=== PATIENT | female | born 1990 | race Caucasian/White ===

== ENCOUNTER 2018-11-18 08:31 | Emergency (ER) | payer BC, OTHER ==
--- NOTE | 2018-11-18 08:45 | ED ---
HPI Chest Pain - HPI Summary HPI Summary: Pt is a 28 y/o female who presents to the ED c/o CP. She began having left- sided CP yesterday at 7:30. The pain has been constant, feels tight and cramping in nature, and is rated an 8/10 in severity. Pt has heart murmurs, which sometimes tighten up and cause CP for 10-15 minutes at a time. She is concerned because the pain is not resolving this time. Pt also reports paresthesia down her left shoulder and arm, and intermittent nausea. She denies any SOB, cough, rhinorrhea, congestion, fever, chills, abdominal pain, or palpitations. Her pulse has been regular at 80-90 bpm. Pt denies any hx of blood clots, or any FHx of cardiac disease. She uses e-cigarettes, but denies any alcohol or drug use. - History of Current Complaint Chief Complaint: EDChestPainROMI Time Seen by Provider: 11/18/18 08:41 Hx Obtained From: Patient Onset/Duration: Started Days Ago - 7:30 yesterday, Still Present Timing: Constant Current Severity: Severe Pain Intensity: 8 Pain Scale Used: 0-10 Numeric Chest Pain Location: Left Anterior Chest Pain Radiates: Yes Chest Pain Radiates To:: Shoulder - left, Arm - left Character: Tightness, Other: - cramping Aggravating Factor(s): Nothing Alleviating Factor(s): Nothing Associated Signs and Symptoms: Positive: Chest Pain, Tingling, Nausea. Negative : Shortness of Breath, Fever, Chills, Palpitations, Cough, Abdominal Pain, Nasal Congestion - Allergy/Home Medications Allergies/Adverse Reactions: Allergies Allergy/AdvReac Type Severity Reaction Status Date / Time CINNNAMON Allergy MOUTH-FEVERBLISTERS,CANKER Uncoded 11/18/18 08:36 SORES,THROAT TIGHTENS HAY-ENVIRONMENTAL Allergy RASH WITH Uncoded 11/18/18 08:36 CONTACT Home Medications: Home Medications Citalopram TAB* [CeleXA TAB*] 30 mg PO DAILY 11/18/18 [History Confirmed ] PMH/Surg Hx/FS Hx/Imm Hx Endocrine/Hematology History: Reports: Hx Anemia - HISTORY OF Cardiovascular History: Reports: Other Cardiovascular Problems/Disorders - MITROVALVE REG Respiratory History: Reports: Hx Asthma - ALBUTERAL NEEDED GI History: Reports: Other GI Disorders - HYPOGLYCEMIA History: Reports: Hx Kidney Infection - PRONE TO - 2 IN THE LAST 7 MONTHS, Hx Kidney Stones - LAST ONE 4 YEARS AGO, Other Problems/Disorders - PRONE TO BLADDER INFECTIONS Musculoskeletal History: Reports: Other Musculoskeletal History - LOWER BACK PINCHED NERVE FLARE UPS OCCASIONALLY Sensory History: Denies: Hx Contacts or Glasses, Hx Hearing Aid Opthamlomology History: Denies: Hx Contacts or Glasses Neurological History: Reports: Hx Migraine - 1 EVERY TWO WEEKS - Surgical History Surgery Procedure, Year, and Place: 2009 2011, C SECTION - [facility]. A YOUNG CHILD HAS CAVITY FILLING UNDER ANESTHESIA,. WISDOM TEETH EXTRACTION WITH NOVACAINE AND VALIUM Hx Anesthesia Reactions: Yes - NAUSEA Infectious Disease History: No Infectious Disease History: Denies: Traveled Outside the [place] in Last 30 Days - Family History Known Family History: Negative: Cardiac Disease - Social History Alcohol Use: Rare Hx Substance Use: No Substance Use Type: Reports: None Hx Tobacco Use: No Smoking Status (MU): Never Smoked Tobacco Type: eCigarettes Review of Systems Negative: Fever, Chills Negative: Nasal Discharge, Other - congestion Positive: Chest Pain. Negative: Palpitations Negative: Shortness Of Breath, Cough Positive: Nausea. Negative: Abdominal Pain, Vomiting Positive: Paresthesia - left shoulder and arm All Other Systems Reviewed And Are Negative: Yes Physical Exam - Summary Physical Exam Summary: GENERAL: Patient is a well-developed and nourished F who is lying comfortable in the stretcher. Patient is not in any acute respiratory distress. HEAD AND FACE: Normocephalic EYES: PERRLA, EOMI x 2. EARS: Hearing grossly intact. MOUTH: Oropharynx within normal limits. NECK: Supple, trachea is midline, no adenopathy, no JVD, no carotid bruit. CHEST: Symmetric, no tenderness at palpation LUNGS: Clear to auscultation bilaterally. No wheezing or crackles. CVS: Regular rate and rhythm, S1 and S2 present, no murmurs or gallops appreciated. ABDOMEN: Soft, non-tender. Bowel sounds are normal. No abdominal abnormal pulsations. EXTREMITIES: Full ROM in all major joints, no edema, no cyanosis or clubbing. NEURO: Alert and oriented x 3. No acute neurological deficits. Speech is normal and follows commands. SKIN: Dry and warm Triage Information Reviewed: Yes Vital Signs On Initial Exam: Initial Vitals Temp Pulse Resp BP Pulse Ox 98.1 F 83 20 141/58 100 11/18/18 08:33 11/18/18 08:33 11/18/18 08:33 11/18/18 08:33 11/18/18 08:33 Vital Signs Reviewed: Yes Diagnostics - Vital Signs Vital Signs Temp Pulse Resp BP Pulse Ox 11/18/18 08:33 98.1 F 83 20 141/58 100 - Laboratory Result Diagrams: 11/18/18 09:06 11/18/18 09:06 Lab Statement: Any lab studies that have been ordered have been reviewed, and results considered in the medical decision making process. - Radiology CXR Radiology Interpretation Completed By: Radiologist Summary of Radiographic Findings: NO ACTIVE CARDIOPULMONARY DISEASE IS NOTED. ED physician reviewed radiology report. - Ultrasound No standard instances Ultrasound Interpretation Completed By: Radiologist Summary of Ultrasound Findings: Transthoracic echocardiogram: Global left ventricular wall motion and contractility are within normal. limits. There is normal left ventricular systolic function. The estimated ejection fraction is 55-60%. The right ventricular global systolic function is normal. There is no evidence of aortic stenosis. There is a trace of mitral regurgitation. There is no evidence of mitral stenosis. There is trace tricuspid regurgitation. No pulmonary hypertension is noted. There is no significant pericardial effusion. ED physician reviewed radiology report. - EKG 8:45 Cardiac Rate: NL - 79 bpm EKG Rhythm: Sinus Rhythm Summary of EKG Findings: Nl intervals Re-Evaluation - Re-Evaluation First Eval Re-Evaluation Time: 10:25 Change: Unchanged Comment: Pt's pain is unchanged. Second Eval Re-Evaluation Time: 13:00 Change: Unchanged Comment: Pt now notes that she feels anxious. Chest Pain Course/Dx - Course Course Of Treatment: Pt is a 28 y/o female who presents to the ED c/o left- sided CP since yesterday at 7:30. An echocardiogram was normal. A CXR was normal. An EKG revealed a rate of 79 bpm. Workup was unremarkable. Pt will be discharged with a final dx of chest pain. I discussed results with patient and she reports feeling better. She is hemodynamically stable and safe for discharge. Strict return precautions given and she will otherwise follow up with her PCP and cardiology. - Diagnoses Provider Diagnoses: Chest pain Discharge - Sign-Out/Discharge Documenting (check all that apply): Patient Departure - Discharge Patient Received Moderate/Deep Sedation with Procedure: No - Discharge Plan Condition: Stable Disposition: HOME Patient Education Materials: Chest Pain (ED) Referrals: Edison Kang MD [Medical Doctor] - (1-3 days) Amara Davis NP [Nurse Practitioner] - Additional Instructions: Follow up with your primary care physician in 1-3 days. RETURN TO THE EMERGENCY DEPARTMENT FOR CHANGING OR WORSENING SYMPTOMS. - Billing Disposition and Condition Condition: STABLE Disposition: Home - Attestation Statements Document Initiated by Scribe: Yes Documenting Scribe: Lilian Davies Provider For Whom Scribe is Documenting (Include Credential): Fadia Lopez MD Scribe Attestation: Lilian Longoria scribed for Fadia Lopez MD on 11/19/18 at 1807. Scribe Documentation Reviewed: Yes Provider Attestation: The documentation as recorded by the Lilian bundy accurately reflects the service I personally performed and the decisions made by Fadia bingham MD Status of Scribe Document: Viewed
[2018-11-18 09:17] LABS: ABS Basophils 0 10^3/ul (0-0.2); ABS Eosinophils 0.1 10^3/ul (0-0.6); ABS Lymphocytes 2.1 10^3/ul (1.0-4.8); ABS Monocytes 0.5 10^3/ul (0-0.8); ABS Neutrophils 2.1 10^3/ul (1.5-7.7); ABS Nucleated RBC 0 10^3/ul; Eosinophil % 1.7 %; Hematocrit 36 % (35-47); Hemoglobin 12.7 g/dl (12.0-16.0); Lymphocyte % 43.1 %; Mean Corpuscular HGB Conc 35 g/dl (31-36); Mean Corpuscular Hemoglobin 30 pg (27-31); Mean Corpuscular Volume 86 fL (80-97); Mean Platelet Volume 9.2 fL (7.4-10.4); Nucleated Red Blood Cells % 0.1; Platelet Count 257 10^3/ul (150-450); Red Blood Count 4.24 10^6/ul (4.00-5.40); Red Cell Distribution Width 13 % (10.5-15); White Blood Count 4.8 10^3/ul (3.5-10.8)
[2018-11-18 09:26] LABS: Activated Partial Thrombo Time 31.5 seconds (26.0-36.3); INR 0.95 (0.77-1.02)
[2018-11-18] MEDS ORDERED: Ketorolac INJ* 60 MG/2 ML VIAL IM ONE (09:34)
[2018-11-18 09:38] LABS: ALT 16 U/L (7-52); AST 18 U/L (13-39); Albumin 4.4 g/dL (3.2-5.2); Albumin/Globulin Ratio 1.6 (1-3); Alkaline Phosphatase 48 U/L (34-104); Anion Gap 7 mmol/L (2-11); BUN/Creatinine Ratio 17.5 (8-20); Blood Urea Nitrogen 14 mg/dL (6-24); CO2 Carbon Dioxide 23 mmol/L (22-32); Calcium 9.5 mg/dL (8.6-10.3); Chloride 107 mmol/L (101-111); EGFR African American 102.6 (>60); EGFR Non-African American 84.8 (>60); Globulin 2.8 g/dL (2-4); Glucose 76 mg/dL (70-100); Potassium 3.8 mmol/L (3.5-5.0); Sodium 137 mmol/L (135-145); Total Protein 7.2 g/dL (6.4-8.9)
[2018-11-18 09:43] LABS: HCG Pregnancy < 0.60 mIU/mL
--- NOTE | 2018-11-18 12:41 | ECHO ---
Patient: SULY PALACIOS [facility] Rec#: [id number] : 1990 Date: 11/18/2018 Age: 28y Height: 178 cm / 70.1 in Weight: 85.3 kg / 188.0 lbs Sex: F BSA: 2.04 Room#: ED 5 Admit Date#: 11/18/2018 Type: Inpatient Referring: Fadia Lopez Reading: Edison Kang MD [employer] Operator: Anisa Ocasio RDCS Transthoracic Echocardiogram Indication: Chest pain BP: 141/58 HR: 64 Rhythm: NSR Findings History: Asthma, mitral valve regurgitation. Technical Comments: The study quality is fair. Completed at 1200. Left Ventricle: The left ventricular chamber size is normal. There is no left ventricular hypertrophy. Global left ventricular wall motion and contractility are within normal limits. There is normal left ventricular systolic function. The estimated ejection fraction is 55-60%. Normal left ventricular diastolic filling is observed. Left Atrium: The left atrial chamber size is normal. Right Ventricle: Moderator Band present. The right ventricle is mildly dilated. The right ventricular global systolic function is normal. Right Atrium: The right atrial cavity size is normal. Aortic Valve: The aortic valve is trileaflet. There is no evidence of aortic valve thickening. There is no evidence of aortic regurgitation. There is no evidence of aortic stenosis. Mitral Valve: The mitral valve leaflets are mildly thickened. There is a trace of mitral regurgitation. There is no evidence of mitral stenosis. Tricuspid Valve: The tricuspid valve leaflets are normal. There is trace tricuspid regurgitation. The right ventricular systolic pressure is estimated at 26 mmHg. No pulmonary hypertension is noted. There is no tricuspid stenosis. Pulmonic Valve: The pulmonic valve appears normal. There is a trace pulmonic regurgitation. There is no pulmonic stenosis. Pericardium: There is no significant pericardial effusion. Aorta: There is no dilatation of the ascending aorta. There is no dilatation of the aortic arch. The aortic root is normal in size. Pulmonary Artery: The main pulmonary artery appears normal. Venous: The inferior vena cava appears normal in size. There is a greater than 50% respiratory change in the inferior vena cava dimension. Conclusions Global left ventricular wall motion and contractility are within normal limits. There is normal left ventricular systolic function. The estimated ejection fraction is 55-60%. The right ventricular global systolic function is normal. There is no evidence of aortic stenosis. There is a trace of mitral regurgitation. There is no evidence of mitral stenosis. There is trace tricuspid regurgitation. No pulmonary hypertension is noted. There is no significant pericardial effusion. Measurements Name Value Normal Range RVIDd (AP) 2D 2.7 cm (0.9 - 2.6) RVDdMajor (2D) 4.6 cm (2.2 - 4.4) RAd ISD 4CH 4.6 cm (3.4 - 4.9) RA (A4C)W 4.4 cm (2.9 - 4.6) IVSd (2D) 0.9 cm (0.6 - 1) LVPWd (2D) 1 cm (0.6 - 1) LVIDd (2D) 4.7 cm (3.6 - 5.4) LVIDs (2D) 3.1 cm - LV FS (2D) 35 % (25 - 45) Aortic Annulus 2.2 cm (1.4 - 2.6) Ao root diameter (2D) 2.8 cm (2.1 - 3.5) Ascending Ao 2.5 cm (2.1 - 3.4) Aortic arch 2 cm (1.8 - 3.4) LA dimension (AP) 2D 3.5 cm (2.3 - 3.8) LAd ISD 4CH 4.9 cm (2.9 - 5.3) LA ISD 4CH W 4.1 cm (2.5 - 4.5) Name Value Normal Range LA ESV BP (A/L) index 26 ml/m2 - Name Value Normal Range MV E-wave Vmax 0.7 m/sec - MV deceleration time 363 msec - MV A-wave Vmax 0.4 m/sec - MV E:A ratio 1.8 ratio - LV septal e' Vmax 0.12 m/sec - LV lateral e' Vmax 0.16 m/sec - LV E:e' septal ratio 5.8 ratio - LV E:e' lateral ratio 4.4 ratio - Name Value Normal Range AV Vmax 1.3 m/sec - AV VTI 32 cm - AV peak gradient 7 mmHg - AV mean gradient 4 mmHg - LVOT Vmax 1.1 m/sec - LVOT VTI 25 cm - LVOT peak gradient 5 mmHg - LVOT mean gradient 3 mmHg - ORA Vmax 1 m/sec - Name Value Normal Range TR Vmax 2.4 m/sec - TR peak gradient 23 mmHg - RAP 3 mmHg - RVSP 26 mmHg - IVC diameter 1.8 cm - Name Value Normal Range PV Vmax 1 m/sec - PV peak gradient 4 mmHg -
[2018-11-18] MEDS ORDERED: oxyCODONE/Acetamin 5/325 MG* TAB PO ONE (12:58)
[2018-11-18] MEDS ORDERED: LORazepam INJ* 2 MG/ML 1 ML VIAL IM ONE (13:05)
[2018-11-18 13:55] VITALS: BP 109/60
== END 2018-11-18 13:54 | disposition home or self-care (01) ==
LOC: ED 08:31
DX: R07.89 Other chest pain (principal); R20.2 Paresthesia of skin; R11.0 Nausea; J45.909 Unspecified asthma, uncomplicated
CPT/HCPCS: 36415; 71046; 80053; 83605; 84484; 84702; 85025; 85379; 85610; 85730; 93005; 93306; 96372; 99283; J1885; J2060